=== PATIENT | male | born 1995 | race African-American/Black ===

== ENCOUNTER 2019-08-22 15:07 | Emergency (ER) | payer SELFPAY ==
[2019-08-22] VITALS (22 sets, daily range): BP systolic 158–166; BP diastolic 72–89; PULSE 88–101; RESP 16–18; TEMP 37.1; O2SAT 92–98; BMI 46.2
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
--- NOTE | 2019-08-22 15:28 | PC.NURSE ---
pt has lip lac from biting his tongue
[2019-08-22] MEDS: sodium chloride 0.9% 1,000 ML 999 ML IV (15:45)
[2019-08-22] MEDS: HYDROmorphone 1 mg/mL INJ 1 mL IVP (15:45)
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
== END 2019-08-22 18:03 | disposition short-term general hospital (02) ==
LOC: ER 17:26
PROVIDERS: Emergency Provider Emergency Medicine; Family Provider Family Medicine
DX: S42.412A Displaced simple supracondylar fracture without intercondylar fracture of left humerus, initial encounter for closed fracture (principal); V89.2XXA Person injured in unspecified motor-vehicle accident, traffic, initial encounter; F17.210 Nicotine dependence, cigarettes, uncomplicated
CPT/HCPCS: 73060; 73090; 96360; 96375; 99282; J1170; J7030

== ENCOUNTER → 2023-09-06 10:01 | Outpatient (BNVA) | payer OTHER, SELFPAY | PROVIDERS: Family Provider Family Medicine; Visit Provider Nurse Practitioner | DX: J02.9 Acute pharyngitis, unspecified (principal) | CPT/HCPCS: 87400; 87426; 87880 ==